=== PATIENT | female | born 1965 | race Native Hawaiian/Other Pacific Islander ===

== ENCOUNTER 2018-01-25 09:03 | Outpatient (CLI) | payer BC ==
[2018-01-25 09:24] LABS: POTASSIUM 4.1 mmol/L (3.6-5.2)
[2018-01-25 09:30] LABS: PLATELET COUNT 334 K/uL (152-353)
== END 2018-01-25 19:58 | disposition home or self-care (01) ==
LOC: LABW 09:03 → RAD 09:03 → LABW 19:58
PROVIDERS: Podiatrist Foot & Ankle Surgery
DX: Z01.818 Encounter for other preprocedural examination (principal); S63.618A Unspecified sprain of other finger, initial encounter
CPT/HCPCS: 36415; 80048; 85027

== ENCOUNTER 2021-01-28 10:34 | Outpatient (CLI) | payer BC ==
[~2021-01-28] VITALS: Ht 165.1 cm; Wt 67.1 kg
[2021-01-28 11:30] LABS: POTASSIUM 3.7 mmol/L (3.6-5.2)
== END 2021-01-28 21:22 | disposition home or self-care (01) ==
LOC: INF 10:34
PROVIDERS: ATTEND Family Medicine
DX: E86.0 Dehydration (principal); R11.0 Nausea; R19.7 Diarrhea, unspecified
CPT/HCPCS: 36415; 36591; 80053; 82150; 82728; 83690; 85379; 86140; 96360; 96361

== ENCOUNTER 2021-01-29 07:52 | Outpatient (CLI) | payer BC | END 2021-01-29 21:06 | disposition home or self-care (01) | LOC: LABW 07:52 | PROVIDERS: ATTEND Nurse Practitioner Family | DX: R19.7 Diarrhea, unspecified (principal) | CPT/HCPCS: 83630; 87015; 87045; 87324; 87328; 87329; 87449; 87899 ==

== ENCOUNTER 2022-01-06 12:51 | Outpatient (CLI) | payer BC | END 2022-01-06 19:12 | disposition home or self-care (01) | LOC: MAMMO 12:51 | PROVIDERS: ATTEND Obstetrics & Gynecology | DX: Z12.31 Encounter for screening mammogram for malignant neoplasm of breast (principal) ==